=== PATIENT | male | born 1985 | race Caucasian/White ===

== ENCOUNTER 2017-10-21 14:30 | Emergency (ER) | payer OTHER, SELFPAY ==
[2017-10-21 14:31] VITALS: BP 159/90; PULSE 80; RESP 16; TEMP 37.3; O2SAT 98; BMI 27.3
[2017-10-21 14:52] VITALS: BP 132/86; BP 135/92; BP 139/94; PULSE 109; PULSE 71; PULSE 86
--- NOTE | 2017-10-21 15:12 | EKG12_ITS ---
Test Reason : DYSRHYTHMIA Blood Pressure : / mmHG Vent. Rate : 071 BPM Atrial Rate : 071 BPM P-R Int : 142 ms QRS Dur : 080 ms QT Int : 360 ms P-R-T Axes : 028 -11 020 degrees QTc Int : 391 ms Normal sinus rhythm with sinus arrhythmia Normal ECG Confirmed by KARINA BUI, WOOD ([id number]), legal editor JORGE SMILEY ([id number]) on 10/26/2017 2:45:38 PM Referred By: ALLI Confirmed By:WOOD COLLINS MD
--- NOTE | 2017-10-21 15:13 | ED.VISSUMM ---
- ER Visit Summary Date of Service: 10/21/17 Chief Complaint: Near syncope History of Present Illness: The patient is a 32 M who presents with possible anxiety attacks and near syncope. He states that he feels like his is going to pass out. He states that he almost fainted today. He also feels flushed. He denies any chest pain or shortness of breath. He takes nothing for anxiety at home. He states he has had anxiety for a long time but is never been treated for it. Denies any full syncope. Denies any headache. Physical Examination: Vital signs reviewed. HEENT exam unremarkable. Heart is regular rate and rhythm without murmurs. Lungs are clear to auscultation. Abdomen is soft and nontender. Extremities reveal no edema. Skin exam normal. Neurologic exam normal. Test Results: EKG is normal sinus rhythm with no ST changes. Urinalysis normal Emergency Department Course and Treatment: Patient had normal EKG and urine. This could be anxiety related. I will give him Vistaril he can take as needed. He will follow-up with his PCP for further testing Treatment Plan: [] Disposition: Discharge Impression: Near Syncope, anxiety This note was generated with [employer] dictation software. It may contain incorrect words, spelling, and punctuation that were not noted in review of the chart prior to signing ED Disposition - Plan for ED Patient: Chief Complaint: Dizziness Referrals: Madi Colmenares III, MD [Primary Care Provider] -
[2017-10-21 15:50] LABS: Bacteria 0 SEEN /hpf (None Seen); Mucous, Urine 0 SEEN /hpf (<or=2+); Red Blood Cells-Urine 0 SEEN /hpf (0-5); Squamous Epithelial Cells - UA 0 SEEN /hpf (0-5); White Blood Cells 0 SEEN /hpf (0-5)
[2017-10-21 16:16] LABS: Color, Urine Yellow (Yellow); Glucose, Dipstick Normal (Normal); Ketone-Dipstick Negative (Negative); Leukocyte Esterase-Dipstick Negative /ul (Negative); Nitrite-Dipstick Negative (Negative); Occult Blood-Urine Negative /ul (Negative); Protein-Dipstick Negative (Negative); Urine Bilirubin Dipstick Negative (Negative); Urine Clarity Clear (Clear); Urine Urobilinogen Normal (Normal); Urine pH 6.5 (5.0 - 8.0)
--- NOTE | 2017-10-21 16:31 | ED.DEP ---
ED Disposition - Plan for ED Patient: Disposition: Home or Assisted Living Chief Complaint: Dizziness Instructions: ED Dizziness [facility] Prescriptions: hydrOXYzine pamoate capsule [Vistaril] 50 mg PO TID PRN PRN #30 cap PRN Reason: Anxiety Referrals: Madi Colmenares III, MD [Primary Care Provider] -
[2017-10-21 16:56] VITALS: BP 140/72; PULSE 80; RESP 18; O2SAT 99
== END 2017-10-21 16:57 | disposition home or self-care (01) ==
PROVIDERS: Emergency Provider Emergency Medicine; Family Provider Family Medicine; PCP Family Medicine
DX: R55 Syncope and collapse (principal); F41.9 Anxiety disorder, unspecified; Z72.0 Tobacco use
CPT/HCPCS: 81001; 93005; 99283

== ENCOUNTER 2017-12-13 10:00 | Emergency (ER) | payer OTHER, SELFPAY ==
[2017-12-13 10:01] VITALS: BP 151/86; PULSE 89; RESP 16; TEMP 37.1; O2SAT 99; BMI 28.0
--- NOTE | 2017-12-13 10:51 | ED.DCSUM_ITS ---
- ER Visit Summary Date of Service: 12/13/17 Chief Complaint: Double vision for 1 month History of Present Illness: The patient is a 32 M who presents with double vision ?1 month. He states the double vision improves with vertical and horizontal gaze. He denies any loss of vision or blurred vision. He denies heat or cold intolerance. He denies trouble with speech or swallowing. He denies headache. He denies cardiac, respiratory or GI symptoms. He denies any urologic symptoms. He denies myalgias or arthralgias. He denies clumsiness or falling. He denies history of trauma. Physical Examination: Vital signs noted and blood pressure is elevated 151/86. Pupils equal round reactive. Extraocular muscles are intact. Sclerae anicteric. Conjunctive is not injected. Funduscopic exam reveals normal cup-to -disc ratio with no papilledema. There is no lid lag with downward gaze. TMs are normal. There is no preauricular lymphadenopathy. Posterior pharynx without erythema XA. Uvula midline. No deviation of the tongue or protrusion. Trach is midline. There is no carotid bruits or lymphadenopathy. Heart is regular without murmur, gallop or rub. S1 and S2 are normal. Lungs are clear to auscultation with good movement of air bilaterally. Abdomen soft nontender. There are no lesions or rash noted. Patient is alert and oriented ?3. Motor is 5 over 5. Sensory is intact. DTRs are symmetric with no clonus or Babinski sign. Cranial 2 through 12 are intact. Cerebellar testing is normal. Romberg test with eyes open and closed was normal. Gait was observed and normal. He is able to walk on heels and toes. Tandem gait is normal. Test Results: Visual acuity noted. Emergency Department Course and Treatment: Dr. Koch was contacted. He requested patient call the office for follow-up appointment for ocular exam. Treatment Plan: Referral to ophthalmology Disposition: Outpatient follow-up with Dr. Koch Impression: Double vision of unknown etiology This note was generated with [employer] dictation software. It may contain incorrect words, spelling, and punctuation that were not noted in review of the chart prior to signing ED Disposition - Plan for ED Patient: Disposition: Home or Assisted Living Chief Complaint: Eye Problem Instructions: ED Double Vision Referrals: Madi Colmenares III, MD [Primary Care Provider] - Additional Instructions: Contact Dr. Koch's office to be seen today or tomorrow.
[2017-12-13 11:16] VITALS: BP 140/71; PULSE 71; RESP 16; O2SAT 100
== END 2017-12-13 11:17 | disposition home or self-care (01) ==
PROVIDERS: Emergency Provider Emergency Medicine; Family Provider Family Medicine; PCP Family Medicine
DX: H53.2 Diplopia (principal); Z72.0 Tobacco use
CPT/HCPCS: 99283

== ENCOUNTER 2019-06-26 11:49 | Emergency (ER) | payer OTHER, SELFPAY ==
[2019-06-26 11:50] VITALS: BP 139/79; PULSE 51; RESP 17; TEMP 36.7; O2SAT 100; BMI 27.3
--- NOTE | 2019-06-26 12:03 | ED.VIS.GEN ---
History of Present Illness Chief Complaint: Nausea/Vomiting/Diarrhea Informant: Patient Onset: Today Current Severity: Moderate Maximum Severity: Moderate Narrative: Patient presents with nausea, vomiting, and diarrhea that woke him from sleep at 4 AM this morning. He states he felt well when he went to bed last evening. He denies anyone else ill at home. He denies history of similar. He denies abdominal pain, but does have constant nausea. He denies any prior abdominal surgeries. Past Medical History - Allergies and Home Meds Allergies/Adverse Reactions: Allergies No Known Allergies Allergy (Verified 06/26/19 11:49) Primary Care Physician: Madi Colmenares III, MD [Primary Care Provider] - 3-5 Days if not improving Prior records reviewed: Yes Lives: With Family Smoking Status: Current every day smoker Review of Systems General: Denies: Chills, Fever Eyes: Denies: Visual changes - bilaterally ENT: Denies: Bilateral ear pain Cardiovascular: Denies: Chest pain Respiratory: Denies: Dyspnea, Cough Gastrointestinal: Reports: Nausea, Vomiting, Diarrhea Genitourinary: Denies: Dysuria Musculoskeletal: Denies: Extremity Pain Skin: Denies: Rash Psych: Denies: Depression Allergy: Denies: Uticaria Physical Exam Vital Signs/Narrative: Vital Signs Temp Pulse Resp BP Pulse Ox 06/26/19 11:50 98.1 F 51 L 17 139/79 H 100 Inital Vital Signs reviewed: Yes General: Well nourished, Well developed Head: Normocephalic ENT: Moist mucous membranes Neck: Supple Cardiovascular: Regular rate, Regular rhythm Respiratory: No distress, CTA bilaterally Abdomen: Soft, Nontender, Hypoactive bowel sounds Skin: Normal color Neurological: Alert, Oriented x3 Psychological: Normal affect Diagnostic/Tx/Re-eval Laboratory Results 06/26/19 06/26/19 12:00 12:00 WBC 25.2 H RBC 5.15 Hgb 16.9 H Hct 49.1 MCV 95.3 H MCH 32.8 H MCHC 34.4 RDW Std Deviation 46.6 H RDW Coeff of Stef 13.2 Plt Count 309 MPV 10.5 Immature Gran % (Auto) 0.800 Neut % (Auto) 82.5 H Lymph % (Auto) 7.4 L Preston % (Auto) 8.5 Eos % (Auto) 0.4 Baso % (Auto) 0.4 Absolute Neuts (auto) 20.8 H Absolute Lymphs (auto) 1.87 Nucleated RBC % 0 Differential Comment COMMENT Diff Path Review May foll Sodium 139 Potassium 3.9 Chloride 107 Carbon Dioxide 25.0 Anion Gap 7 BUN 11 Creatinine 1.20 Estim Creat Clear Calc 90.41 Est GFR (MDRD) Af Amer 89 Est GFR (MDRD) Non-Af 74 BUN/Creatinine Ratio 9.2 L Glucose 139 H Calcium 9.9 Total Bilirubin 0.80 Direct Bilirubin 0.18 AST 35 ALT 48 Alkaline Phosphatase 83 Total Protein 8.2 Albumin 4.5 Globulin 3.7 - EKG Initial EKG Interpretation: Sinus Bradycardia - Sinus bradycardia at 49 bpm. QTC is 433. No acute ischemia. - Medical Decision Making Patient was initially given Phenergan and IV fluids. He reported minimal improvement in his nausea. He was given Zofran. Patient on repeat evaluation reports some nausea, although it is better. He is then given Reglan and Benadryl. Patient does report improvement in his symptoms at this time. He has not had further vomiting while in the emergency room. He was able to ambulate to the restroom and back without difficulty. His does have some Reglan at home that he can use as needed. He will also be given a prescription for Zofran. Patient has no abdominal pain on repeat exam. I believe his elevated white count is secondary to his acute vomiting. He is to return for worsening symptoms or fever. Patient did have one episode of vomiting prior to discharge. He was given dose of Zofran and states he does feel better and wishes to go home. Patient discharged with his at this time. ED Disposition - Plan for ED Patient: Disposition: Home or Assisted Living Diagnosis: Gastroenteritis Instructions: ED Viral Gastroenteritis Prescriptions: Ondansetron [Zofran Odt] 4 mg PO Q8H PRN PRN #10 tab PRN Reason: Nausea Transmission Status: Received by [facility]ND[facility] [facility] Referrals: Madi Colmenares III, MD [Primary Care Provider] - 3-5 Days if not improving
[2019-06-26 12:16] LABS: Absolute Lymphocyte Count 1.87 X10^3/uL (0.83-4.51); Absolute Neutrophil Count 20.8 X10^3/uL (2.0-7.7); Basophil% 0.4 % (0-1); Eosinophils% 0.4 % (0-5); Hematocrit 49.1 % (40-54); Hemoglobin 16.9 g/dL (13.0-16.5); Lymphocyte # 1.87 X10^3/ul (4.0); Lymphocyte % 7.4 % (19-41); Mean Corp Hgb Conc 34.4 g/dL (32-36); Mean Corpuscular Hgb 32.8 pg (27.0-32.0); Mean Corpuscular Volume 95.3 fL (80-94); Mean Platelet Vol. 10.5 fl (6.2-12.0); Monocyte# 2.14 X10^3/uL; Monocyte% 8.5 % (0-10); NRBC Flagged by Analyzer 0 % (0-5); Neutrophil # 20.76 X10^3/uL (2.7-7.7); Neutrophil % 82.5 % (47-70); POSITIVE DIFFERENTIAL YES; Platelet Count 309 K/mm3 (150-450); RBC Distribution Width CV 13.2 % (11.6-14.6); RBC Distribution Width SD 46.6 fl (35.1-43.9); Red Blood Count 5.15 M/mm3 (4.6-6.2); White Blood Count 25.2 K/mm3 (4.4-11.0)
[2019-06-26 12:18] LABS: Differential Indicated SCAN CRITERIA MET
[2019-06-26 12:30] LABS: AST(SGOT) 35 U/L (15-37); Alanine Aminotransfer ALT/SGPT 48 U/L (16-61); Albumin, Serum 4.5 g/dL (3.2-5.0); Alkaline Phosphatase 83 U/L (45-117); Anion Gap 7 (5-15); BUN 11 mg/dL (7-18); BUN/Creat Ratio 9.2 RATIO (10-20); Bilirubin, Direct 0.18 mg/dL (0.00-0.30); Calcium,Total 9.9 mg/dL (8.5-10.1); Chloride 107 mmol/L (98-107); EST Glomerular Filtration Rate 74 mL/min (>60); Est Glom Filt Rate - Afr Amer 89 mL/min (>60); Estimated Creatinine Clearance 90.41 ml/min; Globulin 3.7 g/dL (2.2-4.2); Glucose 139 mg/dL (74-106); Potassium 3.9 mmol/L (3.5-5.1); Protein, Total 8.2 g/dL (6.4-8.2); Sodium Level 139 mmol/L (136-145)
[2019-06-26] MEDS: 0.9% Normal Saline 1,000 ML 1000 ML IV (12:32)
[2019-06-26] MEDS: proMETHazine 25 MG/ML Syringe 12.5 MG IV (12:32)
[2019-06-26] MEDS: 0.9% Normal Saline 1,000 ML 150 ML IV (13:34)
--- NOTE | 2019-06-26 13:36 | EKG12_ITS ---
Test Reason : N/V Blood Pressure : / mmHG Vent. Rate : 049 BPM Atrial Rate : 049 BPM P-R Int : 122 ms QRS Dur : 080 ms QT Int : 480 ms P-R-T Axes : 032 -05 027 degrees QTc Int : 433 ms Sinus bradycardia Otherwise normal ECG Confirmed by KARINA BUI, WOOD ([id number]), senior technical editor RUTH CASTRO ([id number]) on 06/28/2019 9:37:33 AM Referred By: KURT Confirmed By:WOOD COLLINS MD
[2019-06-26 14:00] VITALS: BP 117/87; PULSE 55; RESP 18; TEMP 36.8; O2SAT 100
[2019-06-26] MEDS: Ondansetron 4 MG/2 ML Vial IV (14:09)
[2019-06-26] MEDS: DiphenhydrAMINE 50 MG/ML Syringe 25 MG IV (14:55)
[2019-06-26] MEDS: Metoclopramide 10 MG/2 ML Vial IV (14:57)
[2019-06-26 16:23] VITALS: BP 122/88; PULSE 49; RESP 17; O2SAT 99
[2019-06-27 11:13] LABS: Pathologist Review Reviewed
== END 2019-06-26 16:31 | disposition home or self-care (01) ==
PROVIDERS: Emergency Provider Emergency Medicine; PCP Family Medicine
DX: K52.9 Noninfective gastroenteritis and colitis, unspecified (principal); F17.200 Nicotine dependence, unspecified, uncomplicated
CPT/HCPCS: 80048; 80076; 85025; 93005; 96361; 96374; 96375; 99283; J7030; A4216; J2405

== ENCOUNTER 2019-09-07 12:48 | Emergency (ER) | payer OTHER, SELFPAY ==
[2019-09-07 12:49] VITALS: BP 148/71; PULSE 48; RESP 16; TEMP 36.6; O2SAT 99; BMI 26.6
--- NOTE | 2019-09-07 13:07 | CT_ITS ---
STUDY: CT ABDOMEN AND PELVIS WITHOUT CONTRAST REASON FOR EXAM: Male, 34 years old. ABD PAIN, N/V RADIATION DOSAGE (If Supplied By Facility): CTDIvol = ( 10.87 ) mGy, DLP = ( 527.88 ) mGycm TECHNIQUE: Transaxial images were obtained from the dome of the diaphragm to the symphysis pubis without oral contrast, and without intravenous contrast. Sagittal and coronal images were reconstructed. Individualized dose optimization techniques were used for this CT. COMPARISON: None. FINDINGS: The visualized lung bases are unremarkable. The visualized portions of the heart are within normal limits. Normal liver. Normal gallbladder and extrahepatic biliary system. Normal spleen. Normal pancreas. Normal bilateral adrenal glands. Normal right kidney. Normal left kidney. There is a small hiatal hernia. Normal small intestine. Normal colon. The appendix is visualized and appears normal. Normal abdominal aorta. Normal inferior vena cava. There is borderline retroperitoneal lymphadenopathy with enlarged nodes no greater than 10mm in the short axis diameter. Normal urinary bladder. There is a left-sided inguinal hernia containing adipose tissue. Disc space narrowing and degeneration at the L5-S1 level. CT/Abdomen/Pelvis without Cont IMPRESSION: No acute abnormality is seen. Electronically Signed: Stefano Suresh, at 13:52 EDT , Service support ,
--- NOTE | 2019-09-07 13:08 | ED.DCSUM_ITS ---
History of Present Illness Chief Complaint: Abd Pain Informant: Patient Onset: Days Current Severity: Mild Maximum Severity: Mild Narrative: No past history no exposures to coronavirus complains of diffuse crampy abdomin al pain vomiting some diarrhea no exposure to tainted foods or sick individuals no past history no medications except for Zoloft Past Medical History - Allergies and Home Meds Allergies/Adverse Reactions: Allergies No Known Allergies Allergy (Verified 09/07/19 12:48) Primary Care Physician: Madi Colmenares III, MD [Primary Care Provider] - Past Medical History: None Smoking Status: Current every day smoker Review of Systems General: Denies: Chills, Fever, Sweats Eyes: Denies: Visual changes - bilaterally, Diplopia ENT: Denies: Rhinorrhea, Sore throat Cardiovascular: Denies: Chest pain, Palpitations Respiratory: Denies: Dyspnea, Cough, Dyspnea on exertion Gastrointestinal: Reports: Abdominal pain, Vomiting, Diarrhea. Denies: Nausea, Melena, Hematochezia Genitourinary: Denies: Dysuria, Hematuria, Frequency Musculoskeletal: Denies: Back pain, Extremity Pain Skin: Denies: Rash, Wounds Neurological: Denies: Headache, Weakness, Numbness Physical Exam Vital Signs/Narrative: Vital Signs Temp Pulse Resp BP Pulse Ox 09/07/19 12:49 97.8 F 48 L 16 148/71 H 99 General: Well nourished, Well developed, No Acute Distress Head: Normocephalic, Atraumatic Eyes: Perrl, EOMI ENT: Moist mucous membranes, No rhinorrhea Neck: Supple, Nontender Cardiovascular: Regular rate, Regular rhythm, No murmurs Respiratory: No distress, CTA bilaterally, Chest nontender Abdomen: Soft, Nontender, Nondistended, Normal bowel sounds, - - Abdomen soft there is no rebound guarding organomegaly he subjectively complains of intermittent cramps Back: Nontender, Normal Inspection Extremities: Nontender, No edema Skin: Normal color, No rash Neurological: Alert, Oriented x3, Cranial nerves II-XII grossly intact, Normal Strength, Normal Sensation Psychological: Normal affect, Normal Mood Diagnostic/Tx/Re-eval - Medical Decision Making Given all the above screening labs IV fluids pain management CT The patient's white count is 17,000 his ED evaluation otherwise really unremarkable, urine 1020, CT abdomen pelvis showed nothing acute normal appendix normal other organs On reevaluation he is resting comfortably his cramps are gone he is feeling much better we discussed inpatient versus outpatient management he wants to go home to follow-up with his outpatient providers, he dictates that he has had intermittent spells of abdominal cramps and diarrhea throughout last few years the etiology is unclear he will see his outpatient providers bland diet return for change in symptoms Home stable Final impression crampy abdominal pain resolved diarrhea and vomiting resolved ED Disposition - Plan for ED Patient: Diagnosis: Abdominal pain Instructions: ED Vomiting and Diarrhea Nonspecific Adult Prescriptions: proMETHazine tablet [Phenergan] 25 mg PO Q6H PRN PRN #10 tab PRN Reason: Nausea Prescription Printed Referrals: Madi Colmenares III, MD [Primary Care Provider] -
[2019-09-07 13:26] LABS: Absolute Lymphocyte Count 1.36 X10^3/uL (0.83-4.51); Absolute Neutrophil Count 15.2 X10^3/uL (2.0-7.7); Basophil# 0.04 X10^3/uL; Basophil% 0.2 % (0-1); Hematocrit 48.1 % (40-54); Hemoglobin 16.3 g/dL (13.0-16.5); Lymphocyte # 1.36 X10^3/ul (4.0); Lymphocyte % 7.8 % (19-41); Mean Corp Hgb Conc 33.9 g/dL (32-36); Mean Corpuscular Hgb 33.7 pg (27.0-32.0); Mean Corpuscular Volume 99.6 fL (80-94); Mean Platelet Vol. 10.7 fl (6.2-12.0); Monocyte# 0.64 X10^3/uL; Monocyte% 3.7 % (0-10); NRBC Flagged by Analyzer 0 % (0-5); Neutrophil # 15.17 X10^3/uL (2.7-7.7); Neutrophil % 87.6 % (47-70); Platelet Count 357 K/mm3 (150-450); RBC Distribution Width CV 13.4 % (11.6-14.6); Red Blood Count 4.83 M/mm3 (4.6-6.2); White Blood Count 17.3 K/mm3 (4.4-11.0)
[2019-09-07] MEDS: 0.9% Normal Saline 1,000 ML 1000 ML IV (13:29)
[2019-09-07] MEDS: proMETHazine 25 MG/ML Syringe 12.5 MG IV (13:29)
[2019-09-07] MEDS: morphine 8 MG/ML Syringe IV (13:32)
[2019-09-07 13:44] LABS: AST(SGOT) 43 U/L (15-37); Alanine Aminotransfer ALT/SGPT 37 U/L (16-61); Alkaline Phosphatase 77 U/L (45-117); Anion Gap 10 (5-15); BUN 8 mg/dL (7-18); BUN/Creat Ratio 7.1 RATIO (10-20); Calcium,Total 9.6 mg/dL (8.5-10.1); Chloride 107 mmol/L (98-107); Creatinine, Serum 1.12 mg/dL (0.70-1.30); EST Glomerular Filtration Rate 80 mL/min (>60); Est Glom Filt Rate - Afr Amer 97 mL/min (>60); Estimated Creatinine Clearance 93.81 ml/min; Globulin 4.2 g/dL (2.2-4.2); Glucose 160 mg/dL (74-106); Lipase 69 U/L (73-393); Potassium 5.2 mmol/L (3.5-5.1); Protein, Total 8.2 g/dL (6.4-8.2); Sodium Level 139 mmol/L (136-145)
[2019-09-07 14:30] VITALS: BP 126/82; PULSE 62; RESP 16; O2SAT 100
[2019-09-07 14:39] LABS: Color, Urine Yellow (Yellow); Glucose, Dipstick Normal (Normal); Ketone-Dipstick 50 mg/dl (Negative); Leukocyte Esterase-Dipstick 25 /ul (Negative); Nitrite-Dipstick Negative (Negative); Occult Blood-Urine 10 /ul (Negative); Protein-Dipstick 15 mg/dl (Negative); Urine Bilirubin Dipstick Negative (Negative); Urine Clarity Sl. Cloudy (Clear); Urine Urobilinogen 1 mg/dl (Normal)
[2019-09-07 14:45] LABS: Bacteria 1+ /hpf (None Seen); Mucous, Urine 1+ /hpf (<or=2+); Red Blood Cells-Urine 0-5 SEEN /hpf (0-5); Squamous Epithelial Cells - UA 0-5 SEEN /hpf (0-5); White Blood Cells 0-5 SEEN /hpf (0-5)
[2019-09-07 15:31] VITALS: RESP 18; O2SAT 98
== END 2019-09-07 15:33 | disposition home or self-care (01) ==
LOC: ED 14:15
PROVIDERS: Emergency Provider Emergency Medicine; PCP Family Medicine
DX: R10.9 Unspecified abdominal pain (principal); R11.2 Nausea with vomiting, unspecified; R19.7 Diarrhea, unspecified; F17.200 Nicotine dependence, unspecified, uncomplicated
CPT/HCPCS: 74176; 80053; 81001; 83690; 85025; 96361; 96374; 96375; 99283; J7030; A4216

== ENCOUNTER 2019-10-16 15:48 | Emergency (ER) | payer OTHER, SELFPAY ==
[2019-10-16 15:50] VITALS: BP 143/100; PULSE 72; RESP 16; TEMP 36.1; O2SAT 97; BMI 28.0
[2019-10-16] MEDS: 0.9% Normal Saline 1,000 ML 1000 ML IV (16:00)
--- NOTE | 2019-10-16 16:06 | ED.VISSUMM ---
- ER Visit Summary Date of Service: 10/16/19 Chief Complaint: Nausea, vomiting and diarrhea History of Present Illness: The patient is a 34 M history of anxiety and marijuana use. Patient has been seen multiple times emergency department over the last several months for nausea and vomiting. He is never been told or diagnosed with cyclic vomiting. He only states he has some mild abdominal cramping started having nausea, vomiting and diarrhea this morning. No hematemesis no melena. No fever. No dysuria. No prior abdominal surgeries. Physical Examination: Young male vital signs stable afebrile. H EENT exam unremarkable and mildly dry mucous members. Neck nontender no lymphadenopathy. Lungs clear to auscultation bilaterally. Heart regular rhythm rate about 80 no murmur. Abdomen soft. Nontender. Nondistended. Normal bowel sounds no peritoneal signs. No hernias or masses. Both the right upper and right lower quadrants are unremarkable. Patient is moving all 4 extremities. No edema. Neurologically is awake and alert with no focal motor deficits. Test Results: BMP shows no acute abnormality. Multiple repeat exams. Patient received a second dose of Zofran. He received Phenergan and Ativan. On repeat exam at 1815 p.m. he is doing well. Abdomen is benign. He is comfortable being discharged home with a ride. Emergency Department Course and Treatment: Most likely this patient has cyclic vomiting syndrome. He does have a history of marijuana use. He will be treated with IV fluids, Zofran and IV Ativan. P.o. fluid challenge and reassess. Treatment Plan: Zofran as needed for nausea. Fluids and rest. Increase diet slowly. Strongly encouraged him to stop using marijuana. Disposition: Discharge Impression: Nausea and vomiting and diarrhea Cyclic vomiting syndrome Marijuana use This note was generated with [employer] dictation software. It may contain incorrect words, spelling, and punctuation that were not noted in review of the chart prior to signing ED Disposition - Plan for ED Patient: Disposition: Home or Assisted Living Instructions: ED Nausea Vomiting Adult Prescriptions: Ondansetron [Zofran Odt] 4 mg PO Q8H PRN PRN #7 tab PRN Reason: Nausea Prescription Printed Referrals: Madi Colmenares III, MD [Primary Care Provider] - 1-2 Days if not improving Additional Instructions: Plenty of fluids and rest. Follow-up with your doctor if not improving. Return if feeling worse. Zofran as needed for nausea. Cyclic vomiting syndrome is strongly linked to marijuana use. If you reach stop using marijuana most likely symptoms will resolve also it may take several weeks to several months.
--- NOTE | 2019-10-16 16:10 | ED.DEP ---
ED Disposition - Plan for ED Patient: Disposition: Home or Assisted Living Instructions: ED Nausea Vomiting Adult Prescriptions: Ondansetron [Zofran Odt] 4 mg PO Q8H PRN PRN #7 tab PRN Reason: Nausea Prescription Printed Referrals: Madi Colmenares III, MD [Primary Care Provider] - 1-2 Days if not improving Additional Instructions: Plenty of fluids and rest. Follow-up with your doctor if not improving. Return if feeling worse. Zofran as needed for nausea. Cyclic vomiting syndrome is strongly linked to marijuana use. If you reach stop using marijuana most likely symptoms will resolve also it may take several weeks to several months.
[2019-10-16] MEDS: Ondansetron 4 MG/2 ML Vial IV ×2 (16:13→17:22)
[2019-10-16] MEDS: LORazepam 2 MG/ML Syringe 1 MG IV ×2 (16:15→17:57)
[2019-10-16 16:22] LABS: Anion Gap 10 (5-15); BUN 9 mg/dL (7-18); BUN/Creat Ratio 9.2 RATIO (10-20); Calcium,Total 9.6 mg/dL (8.5-10.1); Chloride 111 mmol/L (98-107); Creatinine, Serum 0.98 mg/dL (0.70-1.30); EST Glomerular Filtration Rate 93 mL/min (>60); Est Glom Filt Rate - Afr Amer 112 mL/min (>60); Estimated Creatinine Clearance 107.21 ml/min; Glucose 136 mg/dL (74-106); Potassium 3.9 mmol/L (3.5-5.1); Sodium Level 140 mmol/L (136-145)
[2019-10-16] MEDS: proMETHazine 25 MG/ML Syringe 12.5 MG IV (17:53)
[2019-10-16 18:22] VITALS: BP 113/92; PULSE 90; RESP 18; O2SAT 97
== END 2019-10-16 18:24 | disposition home or self-care (01) ==
PROVIDERS: Emergency Provider Emergency Medicine; PCP Family Medicine
DX: R11.15 Cyclical vomiting syndrome unrelated to migraine (principal); R19.7 Diarrhea, unspecified; F41.9 Anxiety disorder, unspecified; Z72.0 Tobacco use; Z79.899 Other long term (current) drug therapy
CPT/HCPCS: 80048; 96361; 96374; 96375; 96376; 99283; J7030; A4216; J2405

== ENCOUNTER 2020-01-01 09:47 | Emergency (ER) | payer OTHER, SELFPAY ==
[2020-01-01 09:47] VITALS: BP 142/93; PULSE 70; RESP 17; TEMP 36.1; O2SAT 100; BMI 26.4
--- NOTE | 2020-01-01 09:59 | ED.DCSUM_ITS ---
History of Present Illness Chief Complaint: Nausea/Vomiting/Diarrhea Narrative: Patient presenting for evaluation secondary to nausea vomiting. Patient has a history of prior similar episodes. He has prescriptions for nausea medicine at home, and typically states that he can break his spells by taking Zofran and taking a hot shower. Patient tells me that since 3 in the morning he has had profuse vomiting that has been refractory to his home treatments. Patient also states that he has some abdominal cramping and loose stools. Denies any fevers. Denies any cough shortness of breath or sore throat. Patient does report that he has not taken his Zoloft in a couple of days and thinks that potentially that could be contributing to this, although he does not have any new specific stressors. He does not have an underlying diagnosis of cyclic vomiting. Patient does frequently smoke marijuana, but states that he does not always get the symptoms with THC use. Review of systems otherwise negative. Past Medical History - Allergies and Home Meds Allergies/Adverse Reactions: Allergies No Known Allergies Allergy (Verified 01/01/20 09:47) Primary Care Physician: Madi Colmenares III, MD [Primary Care Provider] - Prior records reviewed: Yes Past Medical History: - - Anxiety Smoking Status: Current every day smoker Alcohol: Occasional Drugs: Marijuana Review of Systems All systems negative except as indicated General: Denies: Chills, Fever, Sweats Eyes: Denies: Visual changes - bilaterally, Diplopia ENT: Denies: Rhinorrhea, Sore throat Cardiovascular: Denies: Chest pain, Palpitations Respiratory: Denies: Dyspnea, Cough, Dyspnea on exertion Gastrointestinal: Reports: Nausea, Vomiting, Diarrhea Genitourinary: Denies: Dysuria, Hematuria, Frequency Musculoskeletal: Denies: Back pain, Extremity Pain Skin: Denies: Rash, Wounds Neurological: Denies: Headache, Weakness, Numbness Physical Exam Vital Signs/Narrative: Vital Signs Temp Pulse Resp BP Pulse Ox 01/01/20 09:47 96.9 F L 70 17 142/93 H 100 General: Well nourished, Well developed, - - Uncomfortable secondary to acute nausea, but not an otherwise physiologic distress. Head: Normocephalic, Atraumatic Eyes: Perrl, EOMI ENT: Moist mucous membranes, No rhinorrhea Neck: Supple, Nontender Cardiovascular: Regular rate, Regular rhythm, No murmurs Respiratory: No distress, CTA bilaterally, Chest nontender Abdomen: Soft, Nontender, Nondistended, Normal bowel sounds Back: Nontender, Normal Inspection Extremities: Nontender, No edema Skin: Normal color, No rash Neurological: Alert, Oriented x3, Cranial nerves II-XII grossly intact, Normal Strength, Normal Sensation Psychological: Normal affect, Normal Mood Diagnostic/Tx/Re-eval - Medical Decision Making Patient presented secondary to nausea and vomiting. Patient is nontoxic- appearing, stable vitals, I do not feel the laboratory work-up is indicated. Patient has been here multiple times for similar presentations, potentially has an element of cyclic vomiting, he was treated with Ativan and Zofran as well as fluids. He had some improvement of his symptoms on repeat evaluation, was given repeat doses of these medications and had further improvement. At this point I feel he safe and appropriate for discharge. Patient has Zofran at home for treatment of nausea, he is recommended to continue that. He will get a refill on his Zoloft. Patient was discharged in improved condition. ED Disposition - Plan for ED Patient: Disposition: Home or Assisted Living Diagnosis: Nausea and vomiting Instructions: ED Nausea Vomiting Adult Referrals: Madi Colmenares III, MD [Primary Care Provider] - 1-2 Days if not improving
[2020-01-01] MEDS: 0.9% Normal Saline 1,000 ML 999 ML IV (10:07)
[2020-01-01] MEDS: LORazepam 2 MG/ML Syringe 0.5 MG IV ×2 (10:08→11:15)
[2020-01-01] MEDS: Famotidine 200 MG/20 ML MDV 20 MG in 0.9% Normal Saline (Pres. free 8 ML 300 MG IV (10:08)
[2020-01-01] MEDS: Ondansetron 4 MG/2 ML Vial IV ×2 (10:08→11:15)
[2020-01-01 11:40] VITALS: BP 125/67; PULSE 59; RESP 16; O2SAT 98
== END 2020-01-01 11:43 | disposition home or self-care (01) ==
PROVIDERS: Emergency Provider Emergency Medicine; PCP Family Medicine
DX: R11.2 Nausea with vomiting, unspecified (principal); R19.7 Diarrhea, unspecified; F41.9 Anxiety disorder, unspecified; F12.90 Cannabis use, unspecified, uncomplicated; Z79.899 Other long term (current) drug therapy; F17.200 Nicotine dependence, unspecified, uncomplicated
CPT/HCPCS: 96365; 96375; 96376; 99283; J7030; A4216; J2405; J3490

== ENCOUNTER 2021-12-25 04:57 | Observation (INO) | payer BC, SELFPAY ==
[2021-12-25] VITALS (20 sets, daily range): BP systolic 85–141; BP diastolic 42–85; PULSE 51–87; RESP 14–26; TEMP 36.2–37.1; O2SAT 93–100; BMI 23.3
--- NOTE | 2021-12-25 05:03 | ED.VIS.GI ---
HPI <Dr. Cedric Hernandez MD - Last Filed: 12/25/21 06:43> HPI - GI History of Present Illness Chief Complaint: Abd Pain Informant: patient Abdominal Pain/Flank Pain Onset: Days (3) Context: Gradual Onset Timing: Continuous Quality: Dull Location: Epigastric Current Severity: Severe Maximum Severity: Severe Worsened by: - (vomiting) Relieved by: Nothing Nausea/Vomiting/Emesis GI Symptom: Positive for Nausea and Vomiting Onset: Days (3) Quality: Positive for Nonbilious; Negative for Blood streaks, Coffee ground or Hematemesis Severity: Severe Diarrhea/Melena/Hematochezia GI Symptom: Negative for Diarrhea, Melena or Hematochezia Associated Symptoms Associated Symptoms: Negative for Dysuria, Frequency or Hematuria Narrative Narrative: Patient states he has been vomiting severely for the past 3 days. States epigastric discomfort started after he had been vomiting for a while and has persisted, all the symptoms are spiraling and severe now. Not able to keep down oral liquids. States he is prescribed marijuana for both chronic nausea and anxiety. He has tried that, in addition to his Zofran he tried couple hours ago neither of helped. He denies any hematemesis, bright red blood per rectum, melena, diarrhea, radiation of the abdominal pain. States he has a hiatal hernia, but he does not appear to be on anything for that. He denies any fevers or chills. No chest symptoms. He presents by EMS and is very anxious. No prior abdominal surgeries. States he has never been diagnosed with cyclic vomiting syndrome but this has happened before. [facility] <Dr. Cedric Hernandez MD - Last Filed: 12/25/21 06:43> [facility] Medical History (Updated 12/25/21 @ 09:[address] Andreas Hoyt DO) Anxiety Hiatal hernia Home Medications ondansetron 4 mg disintegrating tablet 4 mg PO Q8H PRN PRN Nausea #7 tabs 10/16/19 [Rx Last Taken Unknown] sertraline 100 mg tablet 100 mg PO DAILY 01/01/20 [History Last Taken Unknown] trazodone 50 mg tablet 50 mg PO QHS 01/01/20 [History Last Taken Unknown] Allergy/AdvReac Type Severity Reaction Status Date / Time No Known Allergies Allergy Verified 01/01/20 09:47 Social History Smoking Status: Current some day smoker tobacco type: cigarettes ROS <Dr. Cedric Hernandez MD - Last Filed: 12/25/21 06:43> ROS ED Constitutional Constitutional ED: Denies chills or fever(s) Eyes Eyes: Denies change in vision or diplopia ENT ENT ED: Denies rhinorrhea or sore throat Cardiovascular Cardiovascular: Denies chest pain or palpitations Respiratory/Chest Respiratory/Chest: Denies cough or dyspnea Gastrointestinal Gastrointestinal: Reports abdominal pain, nausea, vomiting and other Details: Lots of gas ; Denies diarrhea Genitourinary Genitourinary ED: Denies dysuria or hematuria Musculoskeletal Musculoskeletal: Denies back pain or neck pain Integumentary Denies abscess or rash Neurologic Neurologic: Denies headache(s), paresthesias or weakness Psychiatric Psychiatric: Reports anxiety; Denies suicidal thoughts EXAM <Dr. Cedric Hernandez MD - Last Filed: 12/25/21 06:43> Physical Exam Const Vital Signs: 12/25/21 04:58 12/25/21 07:46 Temperature 97.5 F L Temperature Source Temporal Pulse Rate 64 72 Respiratory Rate 26 H 14 Blood Pressure 136/85 H 141/76 H Blood Pressure Mean 102 97 Pulse Ox 100 97 Oxygen Delivery Method Room Air Room Air Positive well nourished and well developed Constitutional Narrative: Moaning in painful distress, no respiratory distress General Appearance ED: well developed HEENT Reports moist mucous membranes normocephalic and atraumatic Eyes PERRL and EOMs intact bilaterally Neck full ROM and supple Resp normal respiratory effort and clear to auscultation bilaterally Cardio regular rate, regular rhythm and no murmurs Rate: Negative for tachycardic GI non-distended GI Narrative: Tender epigastrium only. No guarding or rebound. Auscultation: normoactive bowel sounds Palpation: soft Back/Spine no CVA tenderness General Back: other FROM Extremity normal to inspection General Extremety ED: Negative for edema, pulses abnormal or tenderness General Extremity: Negative for edema or pulses abnormal Neuro oriented x3, CN's II-XII intact bilaterally and no sensory deficits noted Sensorium / Orientation: awake and alert Motor Exam: strength 5/5 throughout Psych thought process normal Psych Narrative: Very anxious. Moaning. 1-2 word answers in between moans. Skin no rashes or lesions noted and no wounds <Dr. Andreas Hoyt DO - Last Filed: 12/25/21 09:43> Physical Exam Const Vital Signs: 12/25/21 04:58 12/25/21 07:46 Temperature 97.5 F L Temperature Source Temporal Pulse Rate 64 72 Respiratory Rate 26 H 14 Blood Pressure 136/85 H 141/76 H Blood Pressure Mean 102 97 Pulse Ox 100 97 Oxygen Delivery Method Room Air Room Air MDM <Dr. Cedric Hernandez MD - Last Filed: 12/25/21 06:43> [facility] Narrative Medical decision making narrative: Patient has a significant leukocytosis, however this has been the case in the past, and he has been imaged with CT, and it was negative. His abdomen is fairly benign now, and I do not think we need to repeat that imaging. The rest of his labs are normal including his liver enzymes and lipase. He was initially treated with Reglan, Ativan, and a GI cocktail, nurses did not wait to give him a GI cocktail instead gave all medications at the same time, he proceeded to vomit up the GI cocktail. The other medications did seem to help some, and subsequently was given Bentyl for abdominal discomfort but he continued to still be nauseated and have trouble drinking fluids, so he was given Thorazine and observed. We will obtain an ultrasound in the morning and ordered to rule out biliary etiologies given his leukocytosis. Results to be checked out to oncoming ED physician for final disposition and reevaluation. Lab Data Attestation: I reviewed the patient's lab results. Labs: Laboratory Results - last 24 hr 12/25/21 12/25/21 05:00 05:00 WBC 24.8 H RBC 4.83 Hgb 15.1 Hct 44.1 MCV 91.3 MCH 31.3 MCHC 34.2 RDW Std Deviation 43.6 RDW Coeff of Stef 13.0 Plt Count 314 MPV 10.6 Immature Gran % (Auto) 0.600 Neut % (Auto) 76.6 H Lymph % (Auto) 13.9 L Fallon % (Auto) 6.4 Eos % (Auto) 2.2 Baso % (Auto) 0.3 Absolute Neuts (auto) 19.0 H Absolute Lymphs (auto) 3.44 Nucleated RBC % 0 Differential Comment SCANNED Diff Path Review May foll Sodium 139 Potassium 3.8 Chloride 104 Carbon Dioxide 24.0 Anion Gap 11 BUN 15 Creatinine 1.16 Estim Creat Clear Calc 88.88 Est GFR (MDRD) Af Amer 92 Est GFR (MDRD) Non-Af 76 BUN/Creatinine Ratio 12.9 Glucose 135 H Calcium 9.4 Total Bilirubin 0.60 AST 12 L ALT 18 Alkaline Phosphatase 50 Total Protein 7.5 Albumin 4.2 Globulin 3.3 Albumin/Globulin Ratio 1.3 Lipase 169 Radiography Diagnostic Testing: Clinical Impression(s) from Imaging Studies Gallbladder Ultrasound 12/25/21 06:56 IMPRESSION: Normal right upper quadrant ultrasound examination. Electronically Signed: Mukesh Riddle MD at 7:44 EDT , Abdomen/Pelvis CT 12/25/21 08:00 IMPRESSION: Findings suggestive of an intussusception of a proximal jejunal loop with mild dilatation of the proximal jejunum. Electronically Signed: Stefano Suresh MD at 8:54 EDT , <Dr. Andreas Hoyt, DO - Last Filed: 12/25/21 09:43> [facility] Narrative Medical decision making narrative: Patient has a significant leukocytosis, however this has been the case in the past, and he has been imaged with CT, and it was negative. His abdomen is fairly benign now, and I do not think we need to repeat that imaging. The rest of his labs are normal including his liver enzymes and lipase. He was initially treated with Reglan, Ativan, and a GI cocktail, nurses did not wait to give him a GI cocktail instead gave all medications at the same time, he proceeded to vomit up the GI cocktail. The other medications did seem to help some, and subsequently was given Bentyl for abdominal discomfort but he continued to still be nauseated and have trouble drinking fluids, so he was given Thorazine and observed. We will obtain an ultrasound in the morning and ordered to rule out biliary etiologies given his leukocytosis. Results to be checked out to oncoming ED physician for final disposition and reevaluation. 0900: Le. Patient signed out to me for evaluation status post Thorazine for his vomiting. I evaluated him soft abdomen he reports continued symptoms he is given IV Haldol. He is having intractable vomiting. Reports to daily marijuana use. He has heard of cannabis hyperemesis syndrome in the past. He has not been diagnosed with this. He has a white count of 25, his ultrasound was negative. Reported abdominal pain, CT scan was obtain, results and discussed radiology concerns for jejunal intussusception. I did speak with GI Dr. Guthrie who states he would not build the scope that far to get to this however will be happy to follow. I spoke with surgeon on-call Dr. High, who evaluation the ED, he will take him to the OR for procedure. Patient request additional medicines, morphine IV as ordered. Patient will be admitted under surgery service. Lab Data Labs: Laboratory Results - last 24 hr 12/25/21 12/25/21 05:00 05:00 WBC 24.8 H RBC 4.83 Hgb 15.1 Hct 44.1 MCV 91.3 MCH 31.3 MCHC 34.2 RDW Std Deviation 43.6 RDW Coeff of Stef 13.0 Plt Count 314 MPV 10.6 Immature Gran % (Auto) 0.600 Neut % (Auto) 76.6 H Lymph % (Auto) 13.9 L Fallon % (Auto) 6.4 Eos % (Auto) 2.2 Baso % (Auto) 0.3 Absolute Neuts (auto) 19.0 H Absolute Lymphs (auto) 3.44 Nucleated RBC % 0 Differential Comment SCANNED Diff Path Review July foll Sodium 139 Potassium 3.8 Chloride 104 Carbon Dioxide 24.0 Anion Gap 11 BUN 15 Creatinine 1.16 Estim Creat Clear Calc 88.88 Est GFR (MDRD) Af Amer 92 Est GFR (MDRD) Non-Af 76 BUN/Creatinine Ratio 12.9 Glucose 135 H Calcium 9.4 Total Bilirubin 0.60 AST 12 L ALT 18 Alkaline Phosphatase 50 Total Protein 7.5 Albumin 4.2 Globulin 3.3 Albumin/Globulin Ratio 1.3 Lipase 169 Radiography Diagnostic Testing: Clinical Impression(s) from Imaging Studies Gallbladder Ultrasound 12/25/21 06:56 IMPRESSION: Normal right upper quadrant ultrasound examination. Electronically Signed: Mukesh Riddle MD at 7:44 EDT , Abdomen/Pelvis CT 12/25/21 08:00 IMPRESSION: Findings suggestive of an intussusception of a proximal jejunal loop with mild dilatation of the proximal jejunum. Electronically Signed: Stefano Suresh MD at 8:54 EDT , Discharge Plan Dx/Rx/DC Orders Clinical Impression: Acute epigastric pain, Severe vomiting, Anxiety, Jejunal intussusception Disposition Disposition: Acute Care [facility]
[2021-12-25 05:08] LABS: Absolute Lymphocyte Count 3.44 X10^3/uL (0.83-4.51); Basophil# 0.07 X10^3/uL; Basophil% 0.3 % (0-1); Eosinophil# 0.55 X10^3/uL; Eosinophils% 2.2 % (0-5); Hematocrit 44.1 % (40-54); Hemoglobin 15.1 g/dL (13.0-16.5); Lymphocyte # 3.44 X10^3/ul (0.83-4.51); Lymphocyte % 13.9 % (19-41); Mean Corp Hgb Conc 34.2 g/dL (32-36); Mean Corpuscular Hgb 31.3 pg (27.0-32.0); Mean Corpuscular Volume 91.3 fL (80-94); Mean Platelet Vol. 10.6 fl (6.2-12.0); Monocyte% 6.4 % (0-10); NRBC Flagged by Analyzer 0 % (0-5); Neutrophil % 76.6 % (47-70); POSITIVE DIFFERENTIAL YES; Platelet Count 314 K/mm3 (150-450); RBC Distribution Width SD 43.6 fl (35.1-43.9); Red Blood Count 4.83 M/mm3 (4.6-6.2); White Blood Count 24.8 K/mm3 (4.4-11.0)
[2021-12-25] MEDS: Metoclopramide 10 MG/2 ML Vial 5 MG IV (05:09)
[2021-12-25] MEDS: 0.9% Normal Saline 1,000 ML 999 ML IV (05:09)
[2021-12-25] MEDS: LORazepam 2 MG/ML Syringe 0.5 MG IV (05:10)
[2021-12-25] MEDS: Mag Hydrox/Al Hydrox/Simeth 30 ML UDC PO ×2 (05:11→06:14)
[2021-12-25 05:14] LABS: Differential Indicated SCAN CRITERIA MET
[2021-12-25 05:26] LABS: ALB/GLOB Ratio 1.3 RATIO (0.9-2.4); AST(SGOT) 12 U/L (15-37); Alanine Aminotransfer ALT/SGPT 18 U/L (16-61); Albumin, Serum 4.2 g/dL (3.2-5.0); Alkaline Phosphatase 50 U/L (45-117); Anion Gap 11 (5-15); BUN 15 mg/dL (7-18); BUN/Creat Ratio 12.9 RATIO (10-20); Calcium,Total 9.4 mg/dL (8.5-10.1); Chloride 104 mmol/L (98-107); Creatinine, Serum 1.16 mg/dL (0.70-1.30); EST Glomerular Filtration Rate 76 mL/min (>60); Est Glom Filt Rate - Afr Amer 92 mL/min (>60); Estimated Creatinine Clearance 88.88 ml/min; Globulin 3.3 g/dL (2.2-4.2); Glucose 135 mg/dL (74-106); Lipase 169 U/L (73-393); Potassium 3.8 mmol/L (3.5-5.1); Protein, Total 7.5 g/dL (6.4-8.2); Sodium Level 139 mmol/L (136-145)
[2021-12-25 05:35] LABS: Differential Comment SCANNED
[2021-12-25] MEDS: Dicyclomine 20 MG/2 ML Vial IM (05:43)
--- NOTE | 2021-12-25 06:56 | US_ITS ---
STUDY: ABDOMINAL ULTRASOUND - RIGHT UPPER QUADRANT REASON FOR VISIT: Male, 36 years old upper abd pain, n/v, leukocytosis TECHNIQUE: Ultrasound evaluation of the right upper quadrant was performed with real-time and static jain-scale imaging. TECHNICAL QUALITY: Examination limited by bowel gas. COMPARISON: 09/07/2019 CT abdomen/pelvis FINDINGS: Liver: The liver measures 14.1 cm. There is normal echogenicity of the liver. The bile ducts are within normal limits. There is hepatic color flow. The direction of portal flow is hepatopetal. There is no demonstrated mass lesion. Gallbladder: Normal distended gallbladder. The gallbladder wall measures 1.8 mm. There is a negative sonographic Arriaza''s sign. There is no pericholecystic fluid. There are no gallstones. Common Bile Duct (C.B.D.): The common bile duct measures 3.5 mm. Pancreas: Normal size of the head, body and tail of the pancreas. There is normal echogenicity of the pancreas. There is no demonstrated pancreatic mass or cyst. Right Kidney: Normal size of the right kidney. The right kidney measures 8.5 x 4.7 x 5.7 cm. Normal renal cortex. The right cortex measures 2.4 cm. There is no demonstrated renal mass or cyst. There is no right hydronephrosis. US/Gallbladder IMPRESSION: Normal right upper quadrant ultrasound examination. Electronically Signed: Mukesh Riddle MD at 7:44 EDT ,
--- NOTE | 2021-12-25 08:00 | CT_ITS ---
STUDY: CT ABDOMEN AND PELVIS WITH CONTRAST REASON FOR EXAM: Male, 36 years old. 3 day history of nausea and vomiting and abdominal pain. RADIATION DOSAGE (If Supplied By Facility): CTDIvol = ( 10.99 ) mGy, DLP = ( 431.87 ) mGycm TECHNIQUE: Transaxial images were obtained from the dome of the diaphragm to the symphysis pubis without oral contrast. IV 100mL Isovue-300 was administered. Sagittal and coronal images were reconstructed. Individualized dose optimization techniques were used for this CT. COMPARISON: None. FINDINGS: The visualized lung bases are unremarkable. The visualized portions of the heart are within normal limits. Normal liver. Normal gallbladder and extrahepatic biliary system. Normal spleen. Normal pancreas. Normal bilateral adrenal glands. Normal right kidney. Normal left kidney. There is a small hiatal hernia. Focally dilated proximal jejunal loops. There is a focal thickening in the left upper quadrant of the jejunal loop with the findings suggestive of an intussusception. There are scattered colonic diverticula consistent with diverticulosis. Moderate amount of fecal material is seen in the colon. The appendix is visualized and appears normal. Normal abdominal aorta. Normal inferior vena cava. Normal retroperitoneum. Normal urinary bladder. Normal abdominal wall. Disc space narrowing at the L5-S1 level. CT/Abdomen/Pelvis W IV Cont ONLY IMPRESSION: Findings suggestive of an intussusception of a proximal jejunal loop with mild dilatation of the proximal jejunum. Electronically Signed: Stefano Suresh MD at 8:54 EDT ,
[2021-12-25] MEDS: 0.9% Normal Saline 1,000 ML 150 ML IV (08:13)
[2021-12-25] MEDS: Haloperidol Lactate 5 MG/ML Vial 2 MG IV (08:14)
[2021-12-25 10:13] LABS: Partial Thromboplast Time 29.4 Seconds (24.1-36.2)
[2021-12-25 10:18] LABS: International Normalized Ratio 1.1; Prothrombin Time (Protime)PT. 13.5 SECONDS (11.7-14.9)
[2021-12-25] MEDS: Morphine 4 MG/ML Syringe IV (10:26)
--- NOTE | 2021-12-25 10:29 | HP.PCM_ITS ---
[facility] - General General Date of Admission: 12/25/21 Date of Service: 12/25/21 Chief Complaint: Severe abdominal pain and associated intractable nausea and vomiting HPI Narrative BRIGIDA ZIMMERMAN, is a 36 M, with history of severe anxiety on medical marijuana, who presents with a 3-day history of acute onset abdominal pain and associated intractable nausea and vomiting. He states that he has been unable to keep anything down?including chicken noodle soup last night (last p.o. intake) and has been seeing nonbilious emesis almost immediately. When this first began he thought this was a stomach bug but then became convinced that it may be his hiatal hernia bugging him. He states he has known about this hiatal hernia since at least 2019, but denies any routine issues with reflux or heartburn. Denies any associated fever and has had normal bowel movements. He reports that his was just in the hospital last week for similar GI symptoms. Mr. Zimmerman admits this current presentation feels very similar to his presentation for the same symptoms in 2019. The big difference he states his back then he was also drinking heavily and has now been 10 months sober. He reports that he is still using marijuana under medical prescription for anxiety and his last use was yesterday. He denies any change in the frequency of marijuana use and states that in his 2 years since his last presentation he is only experienced maybe 2 episodes of vomiting. Patient's ER work-up is notable for leukocytosis of almost 25,000. Right upper quadrant ultrasound was unremarkable. CT imaging consistent with intussusception in the jejunum in the left upper quadrant. [facility] Medical History (Updated 12/25/21 @ 09:[address] Andreas Hoyt DO) Anxiety Hiatal hernia Home Medications ondansetron 4 mg disintegrating tablet 4 mg PO Q8H PRN PRN Nausea #7 tabs 10/16/19 [Rx Last Taken Unknown] sertraline 100 mg tablet 100 mg PO DAILY 01/01/20 [History Last Taken Unknown] trazodone 50 mg tablet 50 mg PO QHS 01/01/20 [History Last Taken Unknown] Allergy/AdvReac Type Severity Reaction Status Date / Time No Known Allergies Allergy Verified 01/01/20 09:47 Social History Smoking Status: Current some day smoker tobacco type: cigarettes Vital Signs Vital Signs Vital Signs: 12/25/21 04:58 12/25/21 07:46 12/25/21 10:26 Temperature 97.5 F L Temperature Source Temporal Pulse Rate 64 72 51 L Respiratory Rate 26 H 14 16 Blood Pressure 136/85 H 141/76 H 129/74 H Blood Pressure Mean 102 97 92 Pulse Ox 100 97 100 Oxygen Delivery Method Room Air Room Air Room Air 12/25/21 10:26 Temperature 97.6 F L Temperature Source Temporal Pulse Rate 51 L Respiratory Rate 16 Blood Pressure 129/74 H Blood Pressure Mean 92 Pulse Ox 100 Oxygen Delivery Method Room Air Weight Weight: 157 lb 10.088 oz Body Mass Index (BMI) 23.3 Physical Exam Const alert Constitutional Narrative: Somewhat uncooperative and irritable Resp normal respiratory effort GI GI Narrative: Nondistended, no hernia visible, soft, tender to palpation directly over the epigastrium. Skin Lesions: no lesions Results Lab / Micro Data Result Diagrams: 12/25/21 05:00 12/25/21 05:00 Labs: Laboratory Results - last 24 hr 12/25/21 05:00: WBC 24.8 H, RBC 4.83, Hgb 15.1, Hct 44.1, MCV 91.3, MCH 31.3, MCHC 34.2, RDW Std Deviation 43.6, RDW Coeff of Stef 13.0, Plt Count 314, MPV 10.6, Immature Gran % (Auto) 0.600, Neut % (Auto) 76.6 H, Lymph % (Auto) 13.9 L, Jenkins % (Auto) 6.4, Eos % (Auto) 2.2, Baso % (Auto) 0.3, Absolute Neuts (auto) 19.0 H, Absolute Lymphs (auto) 3.44, Nucleated RBC % 0, Differential Comment SCANNED, Diff Path Review July foll 12/25/21 05:00: Sodium 139, Potassium 3.8, Chloride 104, Carbon Dioxide 24.0, An ion Gap 11, BUN 15, Creatinine 1.16, Estim Creat Clear Calc 88.88, Est GFR (MDRD) Af Amer 92, Est GFR (MDRD) Non-Af 76, BUN/Creatinine Ratio 12.9, Glucose 135 H, Calcium 9.4, Total Bilirubin 0.60, AST 12 L, ALT 18, Alkaline Phosphatase 50, Total Protein 7.5, Albumin 4.2, Globulin 3.3, Albumin/Globulin Ratio 1.3, Lipase 169 12/25/21 09:50: PT 13.5, INR 1.1, APTT 29.4 Radiology Impression Gallbladder Ultrasound 12/25/21 06:56 IMPRESSION: Normal right upper quadrant ultrasound examination. Electronically Signed: Mueksh Riddle MD at 7:44 EDT , Abdomen/Pelvis CT 12/25/21 08:00 IMPRESSION: Findings suggestive of an intussusception of a proximal jejunal loop with mild dilatation of the proximal jejunum. Electronically Signed: Stefano Suresh MD at 8:54 EDT , Assessment & Plan Assessment/Plan (1) Jejunal intussusception: (2) Acute epigastric pain: (3) Severe vomiting: PLAN: Plan Patient is a 36-year-old male who presents with complaint of acute onset abdominal pain associated intractable nausea and vomiting. He is a medical marijuana user for history of severe anxiety and has been seen once previously for this issue in our ER in 2019. He states that this pain and vomiting are almost identical to that presentation. His ER work-up today is notable for le ukocytosis and CT imaging showing jejunojejunal intussusception in the left upper quadrant. He has focal tenderness in this area on exam. I do not think at this point that he will be able to succeed with conservative measures or further investigation with a small bowel series as he is at least intermittently obstructing. Therefore, I have recommended that we proceed to the operating room for diagnostic laparoscopy versus exploratory laparotomy with possible small bowel resection and anastomosis. Patient states that he is miserable and would like to see something done so he quickly consents. He will be getting in touch with his to let her know of these plans. Patient to be admitted to the medical surgical unit postoperatively. Additionally, patient's CT imaging from 2019 is reviewed and there appears to be focal dilation in the jejunum in the left upper quadrant from that imaging as well. Radiology did not read anything remarkable, but comparing the 2 studies [id number] there appears to be a correlation regionally. If he is having a recurrence in this area this may explain his presentation in 2020. I have also independently conducted a literature search and found a small case series of 11 patients that suggests a correlation between small bowel intussusception and regular marijuana use. No pathologic lead point was found in those patients that went to the operating room.
[2021-12-25] MEDS: Lactated Ringers 1,000 ML 15 ML IV ×2 (11:45→13:25)
--- NOTE | 2021-12-25 12:47 | OP.PCM_ITS ---
Report of Operation Date of Procedure: 12/25/21 Pre-Operative Diagnosis: 1. CT imaging concerning for jejunojejunal intussusce ption 2. Acute onset abdominal pain intractable nausea and vomiting CT imaging concerning for Post-Operative Diagnosis: Abdominal pain with intractable nausea and vomiting b ut no identifiable GI abnormality Surgery/Procedure Performed:: Diagnostic laparoscopy Description of Surgical Findings:: ? Corrugated appearance of the small bowel serosa ? No evidence of intussusception with full running of the small bowel distal to the ligament of Treitz ? Grossly normal-appearing spleen, stomach, liver, and gallbladder Surgeon: Elpidio High support worker: Karyn Valenzueal Type of Anesthesia: General/Supplemental Anesthesiologist: Michael Mancilla Specimen's removed: None Description of Procedure: After appropriate identification in the preoperative holding area patient was brought to the operating room where he positioned supine on the operating room table. Preoperative antibiotics were administered by anesthesia. Upon request, anesthesia also placed a nasogastric tube and once they were at appropriate depth connected to suction with return of some bilious stomach contents. Patient's abdomen was then prepped and draped in usual sterile fashion. Formal timeout was conducted to confirm patient and procedure. Procedure was begun with a local block in the supraumbilical position and a Mendez entry was made at this location. A 12 mm balloon trocar was placed with some difficulty as we encountered an abdominal wall transportation maintenance worker at the medial edge of the rectus that required cauterization. However, once the site was hemostatic, we obtained pneumoperitoneum at a pressure of 15 mmHg. Laparoscopic investigation revealed no inadvertent injury to the viscera below. 5 mm trochars were placed in the right and left upper quadrant under direct laparoscopic visualization. And the patient was positioned in a reverse Trendelenburg left side up positioning the transverse colon was identified and elevated exposing the transverse mesocolon. I quickly identified the ligament of Treitz and began running the proximal jejunum distally. Here the small bowel had a somewhat dilated and corrugated appearance to the serosa, but otherwise appeared normal and there was no evidence of intussusception. I then ran the bowel distally to the terminal ileum and found the ileum to look grossly completely normal. I also examined the patient's remaining abdomen and all visible colon, stomach, liver, gallbladder, and spleen appeared grossly normal. Cement Finishing Supervisor photographs of this anatomy were obtained during the procedure. Not finding any true pathology, the case was terminated. Pneumoperitoneum was evacuated and our 12 mm supraumbilical port site was closed at the fascia using 0 Vicryl. Additional local anesthetic was infiltrated into the fascia and the skin of each incision was closed using 4-0 Monocryl in a subcuticular fashion. Patient was awoken from his anesthetic and taken to PACU for ongoing recovery. Complications None Admit VTE Documentation VTE Mechan Device Prophylaxis: SCD's
[2021-12-25 13:35] LABS: Pathologist Review Reviewed
[2021-12-25] MEDS: 0.9% Normal Saline 1,000 ML 125 ML IV (15:53)
[2021-12-25] MEDS: HYDROmorphone 0.5 MG/0.5 ML SYRINGE IV (20:34)
[2021-12-25 20:40] LABS: Amphetamine Urine VISTA NEGATIVE (<1000 ng/mL); Barbiturate Urine VISTA NEGATIVE (< 200 ng/mL); Benzodiazepine Urine VISTA NEGATIVE (< 200 ng/mL); Cocaine Urine VISTA NEGATIVE (< 300 ng/mL); Ecstacy Urine VISTA NEGATIVE (< 500 ng/mL); Methadone Urine VISTA NEGATIVE (< 300 ng/mL); PCP Urine VISTA NEGATIVE (< 25 ng/mL); THC Urine VISTA POSITIVE (< 50 ng/mL); Vista UDS pH Range 7
[2021-12-26] MEDS: 0.9% Normal Saline 1,000 ML 125 ML IV ×2 (00:54→08:48)
[2021-12-26 02:49] VITALS: BP 114/46; PULSE 57; RESP 16; TEMP 37.2; O2SAT 94
--- NOTE | 2021-12-26 05:35 | NURSING ---
pt walked a half lap in the [place] with the CNA. tolerated well.
[2021-12-26 05:56] LABS: Absolute Lymphocyte Count 3.27 X10^3/uL (0.83-4.51); Absolute Neutrophil Count 8.8 X10^3/uL (2.0-7.7); Basophil# 0.05 X10^3/uL; Basophil% 0.4 % (0-1); Eosinophil# 0.35 X10^3/uL; Eosinophils% 2.5 % (0-5); Hematocrit 41.6 % (40-54); Hemoglobin 13.8 g/dL (13.0-16.5); Lymphocyte # 3.27 X10^3/ul (0.83-4.51); Lymphocyte % 23.1 % (19-41); Mean Corp Hgb Conc 33.2 g/dL (32-36); Mean Corpuscular Hgb 31.5 pg (27.0-32.0); Monocyte# 1.58 X10^3/uL; Monocyte% 11.2 % (0-10); NRBC Flagged by Analyzer 0 % (0-5); Neutrophil # 8.84 X10^3/uL (2.7-7.7); Neutrophil % 62.3 % (47-70); POSITIVE DIFFERENTIAL YES; Platelet Count 278 K/mm3 (150-450); RBC Distribution Width CV 13.2 % (11.6-14.6); RBC Distribution Width SD 46.4 fl (35.1-43.9); Red Blood Count 4.38 M/mm3 (4.6-6.2); White Blood Count 14.2 K/mm3 (4.4-11.0)
[2021-12-26 06:11] LABS: Differential Indicated SCAN CRITERIA MET
[2021-12-26 06:24] LABS: Differential Comment SCANNED
[2021-12-26 06:30] LABS: Anion Gap 7 (5-15); BUN 8 mg/dL (7-18); BUN/Creat Ratio 8.1 RATIO (10-20); Calcium,Total 8.3 mg/dL (8.5-10.1); Chloride 109 mmol/L (98-107); Creatinine, Serum 0.99 mg/dL (0.70-1.30); EST Glomerular Filtration Rate 91 mL/min (>60); Est Glom Filt Rate - Afr Amer 111 mL/min (>60); Estimated Creatinine Clearance 104.15 ml/min; Glucose 91 mg/dL (74-106); Magnesium 1.8 mg/dL (1.6-2.6); Phosphorus 2.8 mg/dL (2.5-4.9); Potassium 4.1 mmol/L (3.5-5.1); Sodium Level 142 mmol/L (136-145)
[2021-12-26 06:39] VITALS: BP 117/76; PULSE 52; RESP 16; TEMP 36.9; O2SAT 97
--- NOTE | 2021-12-26 07:28 | PN.SURG_ITS ---
Subjective Subjective Patient seen and examined during AM rounds. He is found resting in bed. He states that he is feeling bothered by a sore throat but has minimal abdominal pain. Is not believe that he has passed gas or had any return of bowel function since surgery. Objective Data Objective Data Vital Signs: Vital Signs Temp Pulse Resp BP Pulse Ox O2 Del Method 98.5 F 52 L 16 117/76 97 Room Air 12/26/21 06:39 12/26/21 06:39 12/26/21 06:39 12/26/21 06:39 12/26/21 06:39 12/26/21 06:39 Oxygen Delivery Method Room Air Weight: 157 lb 10.088 oz Body Mass Index (BMI) 23.3 Intake & Output: Intake and Output for Last 24 Hours 12/24/21 12/25/21 12/26/21 23:59 23:59 23:59 Intake Total 4153.5 / 4153.5 40 / 40 Output Total 150 / 150 50 / 50 Balance 4003.5 / 4003.5 -10 / -10 Lab / Micro Data Result Diagrams: 12/26/21 05:15 12/26/21 05:15 Labs: Laboratory Results - last 24 hr 12/25/21 05:00: Diff Path Review Reviewed 12/25/21 09:50: PT 13.5, INR 1.1, APTT 29.4 12/25/21 09:50: Blood Type A NEGATIVE, Antibody Screen NEGATIVE 12/25/21 20:15: Urine Opiates Screen POSITIVE H, Urine Methadone Screen NEGATIVE, Ur Barbiturates Screen NEGATIVE, Ur Phencyclidine Scrn NEGATIVE, Ur Amphetamines Screen NEGATIVE, MDMA (Ecstasy) Screen NEGATIVE, U Benzodiazepines Scrn NEGATIVE, Urine Cocaine Screen NEGATIVE, U Cannabinoids Screen POSITIVE H, Ur Drug Screen Comment 12/26/21 05:15: WBC 14.2 H, RBC 4.38 L, Hgb 13.8, Hct 41.6, MCV 95.0 H, MCH 31.5, MCHC 33.2, RDW Std Deviation 46.4 H, RDW Coeff of Stef 13.2, Plt Count 278, MPV 11.0, Immature Gran % (Auto) 0.500, Neut % (Auto) 62.3, Lymph % (Auto) 23.1, [place] % (Auto) 11.2 H, Eos % (Auto) 2.5, Baso % (Auto) 0.4, Absolute Neuts (auto) 8.8 H, Absolute Lymphs (auto) 3.27, Nucleated RBC % 0, Differential Comment TAIWO DEY, Parminder Path Review July foll 12/26/21 05:15: Sodium 142, Potassium 4.1, Chloride 109 H, Carbon Dioxide 26.0, Anion Gap 7, BUN 8, Creatinine 0.99, Estim Creat Clear Calc 104.15, Est GFR (MDRD) Af Amer 111, Est GFR (MDRD) Non-Af 91, BUN/Creatinine Ratio 8.1 L, Glucose 91, Calcium 8.3 L, Phosphorus 2.8, Magnesium 1.8 Radiography Diagnostic Testing: Radiology Impression Gallbladder Ultrasound 12/25/21 06:56 IMPRESSION: Normal right upper quadrant ultrasound examination. Electronically Signed: Mukesh Riddle MD at 7:44 EDT , Abdomen/Pelvis CT 12/25/21 08:00 IMPRESSION: Findings suggestive of an intussusception of a proximal jejunal loop with mild dilatation of the proximal jejunum. Electronically Signed: Stefano Suresh MD at 8:54 EDT , Physical Exam Const oriented x3 Resp normal respiratory effort GI GI Narrative: NG tube to right nare draining thick brown chyme fluid?with total volume of 200 mL since surgery in collection canister, nondistended, operative dressings in place without drainage, patient soft and minimally tender to palpation about port sites Assessment & Plan Assessment/Plan (1) Jejunal intussusception: (2) S/P laparoscopy: PLAN: Plan Patient postoperative day 1 from diagnostic laparoscopy for evaluation of jejun ojejunal intussusception. Negative intraoperative investigation. Given the proximal location of this finding, patient was maintained with a nasogastric tube. Today he complains of irritation from this tube, but output over the last 20 or so hours has been only 200 mL. He currently denies return of bowel function otherwise. Therefore, I would like to perform a clamp trial to see if we can get this tube out sooner than later and have instructed him to sit in a chair for 4 hours with the tube unclamped to minimize aspiration risk and then he should be returned to suction to record immediate output. Neuro: As needed Dilaudid Pulm/CV: Incentive spirometer, no current CV issues FEN/GI: Electrolytes within normal limits per labs, strict n.p.o., NG tube to low intermittent wall suction currently, but will plan for clamp trial?nursing briefed : No current issues Heme/ID: CBC shows stable hemoglobin and improvement in white count with only single preoperative/prophylactic antibiotic dose Endo: No current issues Proph: Patient encouraged to ambulate mobilize as tolerated, SCDs Dispo: Continue observation stay
[2021-12-26 07:43] VITALS: BP 121/76; PULSE 48; RESP 18; TEMP 36.4; O2SAT 98
[2021-12-26 07:48] VITALS: BP 121/76; PULSE 48; RESP 18; TEMP 36.4; O2SAT 98
[2021-12-26] MEDS: FLU VACC QS2022-23(6MOS UP)/PF 60 MCG/0.5 ML SYRINGE IM (12:03)
[2021-12-26 13:14] LABS: Pathologist Review Reviewed
[2021-12-26 14:30] VITALS: BP 142/90; PULSE 50; RESP 18; TEMP 36.8; O2SAT 99
[2021-12-26] MEDS: Ibuprofen 400 MG Tablet PO (14:33)
[2021-12-26 15:26] VITALS: BP 142/90; PULSE 50; RESP 18; TEMP 36.8; O2SAT 99
--- NOTE | 2021-12-26 17:14 | PCM.DC.SUM ---
Providers Date of Admission: 12/25/21 Primary Care Physician: No Primary Care Phys Reason For Visit: partial small bowel obstruction Diagnosis Discharge Diagnosis (1) Jejunal intussusception: Status: Acute Code(s): K56.1 - Intussusception (2) S/P laparoscopy: Status: Acute Code(s): Z98.890 - Other specified postprocedural states Plan Patient postoperative day 1 from diagnostic laparoscopy for evaluation of jejunojejunal intussusception. Negative intraoperative investigation. Given the proximal location of this finding, patient was maintained with a nasogastric tube. Today he complains of irritation from this tube, but output over the last 20 or so hours has been only 200 mL. He currently denies return of bowel function otherwise. Therefore, I would like to perform a clamp trial to see if we can get this tube out sooner than later and have instructed him to sit in a chair for 4 hours with the tube unclamped to minimize aspiration risk and then he should be returned to suction to record immediate output. Neuro: As needed Dilaudid Pulm/CV: Incentive spirometer, no current CV issues FEN/GI: Electrolytes within normal limits per labs, strict n.p.o., NG tube to low intermittent wall suction currently, but will plan for clamp trial?nursing briefed : No current issues Heme/ID: CBC shows stable hemoglobin and improvement in white count with only single preoperative/prophylactic antibiotic dose Endo: No current issues Proph: Patient encouraged to ambulate mobilize as tolerated, SCDs Dispo: Continue observation stay Medications at Discharge Home Medications ondansetron 4 mg disintegrating tablet 4 mg PO Q8H PRN PRN Nausea #7 tabs 10/16/19 sertraline 100 mg tablet 100 mg PO DAILY 01/01/20 trazodone 50 mg tablet 50 mg PO QHS 01/01/20 Hospital Course Operations - (Diagnostic laparoscopy) Summary of Care Provided Hospital Course: Patient is a 36-year-old male who presented to [facility] emergency department on 12/25/2021 with complaints of acute onset abdominal pain and several days of intractable nausea and vomiting. ER work-up was notable for significant leukocytosis and CT imaging showed evidence of small bowel intussusception in the left upper quadrant. Given patient's ongoing abdominal discomfort and persistent nausea/vomiting, I recommended proceeding to the operating room for emergent diagnostic laparoscopy versus exploratory laparotomy with possible bowel resection and reanastomosis. Patient provided his consent and we proceeded as described. With the laparoscopy portion of the procedure, I was able to clearly visualize the left upper quadrant and run the bowel in its entirety starting at the ligament of Treitz and proceeding distally to the terminal ileum. I did not find any evidence of intussusception nor a pathologic lead point during this exam. With this reassuring exam, patient's procedure was terminated and he was [facility] ongoing monitoring following a brief PACU stay. During his operative procedure, I had requested a nasogastric tube placement not only for patient's initial presentation, but also given the risk for ileus with his small bowel evaluation during her operation. He was thus held n.p.o. overnight with IV fluid running continuously. On postoperative day 1 he had a nominal volume output from his nasogastric tube and his abdominal exam was reassuring. Therefore I proceeded with a clamp trial and patient passed without issue so his nasogastric tube was removed and he was initiated on clear liquids. He tolerated this diet advance for the next meal of the day so he was advanced again to a regular diet for the following meal. After hearing confirmation from nursing that he tolerated this as well and confirming his clinical stability throughout the monitoring process, he was discharged from the hospital with follow-up discussed for outpatient follow-up with me in 1 week post discharge. Physical Exam Const alert, oriented x3 and no apparent distress General Appearance: cooperative Resp normal respiratory effort GI GI Narrative: Nondistended, soft, operative dressings intact with no drainage. Tenderness appropriate for recent operative intervention otherwise unremarkable Weight / BMI Weight Weight: 157 lb 10.088 oz Body Mass Index (BMI) 23.3 ABG / Lab / Microbiology Data Result Diagrams: 12/26/21 05:15 12/26/21 05:15 Laboratory: Laboratory Results - last 24 hr 12/25/21 20:15: Urine Opiates Screen POSITIVE H, Urine Methadone Screen NEGATIVE, Ur Barbiturates Screen NEGATIVE, Ur Phencyclidine Scrn NEGATIVE, Ur Amphetamines Screen NEGATIVE, MDMA (Ecstasy) Screen NEGATIVE, U Benzodiazepines Scrn NEGATIVE, Urine Cocaine Screen NEGATIVE, U Cannabinoids Screen POSITIVE H, Ur Drug Screen Comment 12/26/21 05:15: WBC 14.2 H, RBC 4.38 L, Hgb 13.8, Hct 41.6, MCV 95.0 H, MCH 31.5, MCHC 33.2, RDW Std Deviation 46.4 H, RDW Coeff of Stef 13.2, Plt Count 278, MPV 11.0, Immature Gran % (Auto) 0.500, Neut % (Auto) 62.3, Lymph % (Auto) 23.1, [place] % (Auto) 11.2 H, Eos % (Auto) 2.5, Baso % (Auto) 0.4, Absolute Neuts (auto) 8.8 H, Absolute Lymphs (auto) 3.27, Nucleated RBC % 0, Differential Comment SCANNED, Diff Path Review Reviewed 12/26/21 05:15: Sodium 142, Potassium 4.1, Chloride 109 H, Carbon Dioxide 26.0, Anion Gap 7, BUN 8, Creatinine 0.99, Estim Creat Clear Calc 104.15, Est GFR (MDRD) Af Amer 111, Est GFR (MDRD) Non-Af 91, BUN/Creatinine Ratio 8.1 L, Glucose 91, Calcium 8.3 L, Phosphorus 2.8, Magnesium 1.8 Meaningful Use Info Meaningful Use Diagnoses (Choose all that apply): None applicable Discharge Plan Admission Admit Date/Time: 12/25/21 12:41 Primary Reason for Your Visit: Small bowel intussusception Attending Provider: Elpidio High Primary Care Provider: [facility] PhysicianLoly Primary Discharge Orders/Prescriptions Prescriptions: Continued ondansetron 4 MG tablet 4 mg PO Q8H PRN PRN (Reason: Nausea) Qty: 7 0RF trazodone 50 MG tablet 50 mg PO QHS sertraline 100 MG tablet 100 mg PO DAILY Referrals / Follow Up: Care PhysicianLoly Primary [Primary Care Provider] - Disposition Disposition (needs filled in before D/C Order can be placed): Home, Self Care
--- NOTE | 2021-12-26 17:15 | DCINST_ITS ---
Discharge Instructions Diet Discharge Diet: No restrictions Activity Discharge Activity: May Not Drive (May not drive while taking narcotic pain medications) and May Shower (May begin showering 48hours postop. Please avoid baths or submerging surgical incisions before skin is completely healed.) May shower in (days): 2 May resume sexual activity in: 2 weeks Ice area for (Minutes): 20 Lifting Restrictions: Limit lifting to <15lbs for 2 weeks following surgery Dressing / Incision Call your doctor if your incision/area has: Sudden Increased Bleeding, Increased Pain/ Swelling, Increased Redness, Foul Smelling Discharge and Swelling at the incision site Call your doctor if you observe: Fever of 101 or Higher, Inability to urinate, Inability to have a bowel movement and Uncontrolled pain Suture Line Care: Avoid Pulling/Pushing Remove Dressing in: 2 days (Please leave steri strips (medical tape) in place until they fall off spontaneously or are removed at your follow-up appointment) Cleanse incision/area with: Soap & Water (once outer bandages are removed) and Keep Dressing Clean & Dry Additional Dressing/Incision Instructions:: Please leave Steri-Strips intact until they fall off spontaneously or are taken off at your follow-up visit Follow Up Care Please Follow Up With: Elpidio High MD When: 7 to 10 days postop Test Results: Test results from this visit will be discussed in further detail at your follow- up appointment, if applicable. Discharge Plan Admission Admit Date/Time: 12/25/21 12:41 Primary Reason for Your Visit: Small bowel intussusception Attending Provider: Elpidio High Primary Care Provider: Care PhysicianLoly Primary Discharge Orders/Prescriptions Prescriptions: Continued ondansetron 4 MG tablet 4 mg PO Q8H PRN PRN (Reason: Nausea) Qty: 7 0RF trazodone 50 MG tablet 50 mg PO QHS sertraline 100 MG tablet 100 mg PO DAILY Referrals / Follow Up: Care Physician,Loyl Primary [Primary Care Provider] - Disposition Disposition (needs filled in before D/C Order can be placed): Home, Self Care
== END 2021-12-26 18:28 | disposition home or self-care (01) ==
LOC: ED 09:41 → SDC 09:52 → AC 12:17 → MS3 12:18 → SDC 13:05 → MS3 13:05
PROVIDERS: Emergency Medicine; Admitting Provider Surgery; Emergency Provider Emergency Medicine; Visit Provider Surgery
PROC: (CPT 44202; principal; 2021-12-25 10:25)
DX: K56.1 Intussusception (principal); F41.9 Anxiety disorder, unspecified; F17.210 Nicotine dependence, cigarettes, uncomplicated; Z79.899 Other long term (current) drug therapy; K44.9 Diaphragmatic hernia without obstruction or gangrene; Z23 Encounter for immunization
CPT/HCPCS: 49320; 00840; 36415; 74177; 76705; 80048; 80053; 80307; 83690; 83735; 84100; 85025; 85610; 85730; 86850; 86900; 86901; 96361; 96365; 96372; 96375; 97802; 99218; 99251; 99285; 99406; J7030; J7120; Q9967; 90686; A4216; G0378; G0463; J2405; J3490

== ENCOUNTER → 2024-10-10 | Outpatient (CLI) | payer BC, SELFPAY ==
[2024-10-10 12:03] LABS: Hematocrit 46.1 % (40-54); Hemoglobin 15.5 g/dL (13.0-16.5); Immature Granulocytes Count 0.060 X10^3/uL (0.0-0.0); Mean Corp Hgb Conc 33.6 g/dL (32-36); Mean Corpuscular Volume 92.8 fL (80-94); Mean Platelet Vol. 10.8 fl (6.2-12.0); NRBC Flagged by Analyzer 0 % (0-5); Platelet Count 319 K/mm3 (150-450); RBC Distribution Width CV 13.5 % (11.6-14.6); RBC Distribution Width SD 46.4 fl (35.1-43.9); Red Blood Count 4.97 M/mm3 (4.6-6.2); White Blood Count 11.4 K/mm3 (4.4-11.0)
[2024-10-10 15:25] LABS: AST(SGOT) 19 U/L (<=37); Alanine Aminotransfer ALT/SGPT 13 U/L (<=46); Albumin, Serum 4.6 g/dL (3.5-5.0); Alkaline Phosphatase 56 U/L (40-129); Anion Gap 12 (5-15); BUN 11 mg/dL (4-19); BUN/Creat Ratio 10.3 RATIO (10-20); Calcium,Total 9.8 mg/dL (7.6-11.0); Carbon Dioxide 24.3 mmol/L (21.0-32.0); Chloride 104 mmol/L (98-108); Cholesterol 205 mg/dL (<=200); Globulin 3.1 g/dL (2.2-4.2); Glucose 93 mg/dL (70-99); Low Density Lipoprotein Calc. 137 mg/dL; Potassium 4.3 mmol/L (3.3-5.1); Triglycerides 65 mg/dL; Very Low Density Lipoprotein 13 mg/dL (5-40); cholesterol:hdl ratio screen 3.76
== END | disposition home or self-care (01) ==
LOC: VSLAB 10:49
PROVIDERS: PCP Family Medicine; Visit Provider Family Medicine
DX: Z00.00 Encounter for general adult medical examination without abnormal findings (principal)
CPT/HCPCS: 36415; 80053; 80061; 83036; 84443; 85025